=== PATIENT | female | born 1950 | race Caucasian/White ===

== ENCOUNTER 2021-06-25 19:28 | Inpatient (IN) | payer MEDICARE ==
[2021-06-25 20:11] VITALS: BMI 22.7
[2021-06-25] MEDS ORDERED: SODIUM CHLORIDE 1,429 ML IV ONE (20:26)
[2021-06-25] MEDS ORDERED: ALBUTEROL SO4 2.5/IPRATROPIUM 0.5 INH SOL 3 ML VIAL.NEB. NEB ONE ×2 (21:03→21:22)
[2021-06-25 21:18] LABS: CALCIUM 8.7 mg/dL (8.5-10.1)
[2021-06-25 21:19] LABS: ALBUMIN 2.5 g/dl (3.4-5.0)
[2021-06-25] MEDS ORDERED: SODIUM CHLORIDE 0.9% 500 ML INFUS.BAG IV ONE (21:19)
[2021-06-25 21:20] LABS: BASO % 0.2 % (0-2.0); EOS % 1.2 % (0-4.5); HEMATOCRIT 40.8 % (32.4-45.2); HEMOGLOBIN 12.6 GM/dL (10.7-15.3); LYMPH % 8.2 % (8-40); MCH 32.1 pg (25.7-33.7); MCHC 30.9 g/dl (32.0-36.0); MEAN CELL VOLUME 103.8 fl (80-96); MEAN PLT VOLUME 8.4 fl (7.5-11.1); MONO % 3.8 % (3.8-10.2); NEUT % 86.6 % (42.8-82.8); PLATELET COUNT 151 10^3/uL (134-434); RBC 3.93 M/mm3 (3.60-5.2); RDW 22.6 % (11.6-15.6); WHITE BLOOD COUNT 4.5 K/mm3 (4.0-10.0)
[2021-06-25 21:22] LABS: CREATININE 4.4 mg/dL (0.55-1.3)
[2021-06-25] MEDS ORDERED: DEXAMETHASONE SOD PHOSPHATE 10 MG/1 ML VIAL IVPUSH STA (21:22)
[2021-06-25] MEDS ORDERED: DEXAMETHASONE SOD PHOSPHATE 10 MG/1 ML VIAL ONE (21:22)
[2021-06-25 21:23] LABS: INR 3.97 (0.83-1.09); PROTHROMBIN TIME (PATIENT) 46.3 SEC (9.7-13.0)
[2021-06-25] MEDS ORDERED: PIPERACILLIN/TAZOB 4.5 GM 4.5 GM in DEXTROSE 5%-WATER 100 ML IVPB ONE (21:23)
[2021-06-25] MEDS ORDERED: VANCOMYCIN 1,000 MG in DEXTROSE 5%-WATER - 250 ML IVPB ONE (21:23)
[2021-06-25 21:24] LABS: BILIRUBIN,TOTAL 2.3 mg/dL (0.2-1)
[2021-06-25 21:26] LABS: ACTIVATED PTT 40.3 SECONDS (25.2-36.5)
[2021-06-25 21:30] LABS: LACTIC ACID 7.7 mmol/L (0.4-2.0)
[2021-06-25] MEDS ORDERED: PIPERACILLIN/TAZOB 4.5 GM 4.5 GM/100 ML BAG IVPB ONE (21:39)
[2021-06-25 21:45] LABS: ARTERIAL BLD GAS O2 SATURATION 99.4 % (95-98); ARTERIAL BLOOD GAS BASE EXCESS -1.6 mmol/L (-2-2); ARTERIAL BLOOD GAS PO2 204.7 mmHg (80-100); ARTERIAL BLOOD GAS pH 7.383 (7.350-7.450)
[2021-06-25 21:46] LABS: ALLENS TEST POSITIVE
[2021-06-25 21:47] LABS: VENT MODE HF + NRB
[2021-06-25 22:03] LABS: BLOOD UREA NITROGEN 30.6 mg/dL (7-18); TOT PROT 8.1 g/dl (6.4-8.2)
[2021-06-25] MEDS ORDERED: VANCOMYCIN 1 GRAM (PRE-DOCKED) 1,000 MG/250 ML BAG IVPB ONE (23:10)
[2021-06-26 00:24] LABS: ANISOCYTOSIS 2+; MACROCYTOSIS 1+
[2021-06-26 00:25] LABS: TARGET CELLS 1+; TEAR DROP CELLS 1+
[2021-06-26 00:35] LABS: ARTERIAL BLD GAS O2 SATURATION 99.6 % (95-98); ARTERIAL BLOOD GAS PO2 259.3 mmHg (80-100); ARTERIAL BLOOD GAS pH 7.364 (7.350-7.450)
[2021-06-26 06:29] LABS: LACTIC ACID 2.8 mmol/L (0.4-2.0)
[2021-06-26 09:55] LABS: HEMATOCRIT 32.9 % (32.4-45.2); HEMOGLOBIN 10.4 GM/dL (10.7-15.3); MCH 32.4 pg (25.7-33.7); MCHC 31.8 g/dl (32.0-36.0); MEAN PLT VOLUME 8.4 fl (7.5-11.1); PLATELET COUNT 113 10^3/uL (134-434); RBC 3.22 M/mm3 (3.60-5.2); WHITE BLOOD COUNT 8.3 K/mm3 (4.0-10.0)
[2021-06-26 10:00] LABS: INR 3.43 (0.83-1.09); PROTHROMBIN TIME (PATIENT) 39.9 SEC (9.7-13.0)
[2021-06-26 10:02] LABS: ACTIVATED PTT 45.8 SECONDS (25.2-36.5)
[2021-06-26 10:27] LABS: ANISOCYTOSIS 1+; MACROCYTOSIS 1+; OVALOCYTE 1+; PLATELET ESTIMATE DECREASED
[2021-06-26] MEDS ORDERED: PIPERACILLIN/TAZOB 3.375 GM 3.375 GM in DEXTROSE 5%-WATER - 50 ML IVPB ONE (10:37)
[2021-06-26 10:38] LABS: CALCIUM 8.6 mg/dL (8.5-10.1)
[2021-06-26 10:42] LABS: CREATININE 4.5 mg/dL (0.55-1.3)
[2021-06-26] MEDS ORDERED: PIPERACILLIN/TAZOB 3.375 GM 3.375 GM/50 ML BAG IVPB ONE ×2 (10:42→15:11)
[2021-06-26 10:44] LABS: BILIRUBIN,TOTAL 1.8 mg/dL (0.2-1); TOT PROT 6.7 g/dl (6.4-8.2)
[2021-06-26] MEDS ORDERED: ALBUTEROL SO4 2.5/IPRATROPIUM 0.5 INH SOL 3 ML VIAL.NEB. NEB PRN (10:46)
[2021-06-26] MEDS ORDERED: PANTOPRAZOLE SODIUM 40 MG/100 ML BAG IVPB ONE (10:59)
[2021-06-26] MEDS: PANTOPRAZOLE SODIUM 40 MG VIAL IVPUSH SCH (12:00)
[2021-06-26] MEDS ORDERED: PT OWN MED DRAWER 7, Y5N ONE (14:56)
[2021-06-26] MEDS ORDERED: PIPERACILLIN/TAZOB 2.25 GM 2.25 GM in DEXTROSE 5%-WATER - 50 ML IVPB SCH (15:00)
[2021-06-26] MEDS ORDERED: PIPERACILLIN/TAZOB 2.25 GM 3.375 GM in DEXTROSE 5%-WATER - 50 ML IVPB SCH (15:00)
[2021-06-26] MEDS: SODIUM CHLORIDE NASAL SPRAY 44 ML BOTTLE NS SCH ×3 (15:16→23:19)
[2021-06-26] MEDS ORDERED: SODIUM CHLORIDE 250 ML IV PRN (16:44)
[2021-06-26] MEDS ORDERED: VANCOMYCIN 1 GRAM (PRE-DOCKED) 1,000 MG/250 ML BAG IVPB ONE ×2 (18:44→18:54)
[2021-06-26] MEDS: ALBUMIN HUMAN 25% 12.5 GM/50 ML VIAL IVPB SCH ×4 (21:35→22:37)
[2021-06-26 23:47] LABS: INR 3.49 (0.83-1.09); PROTHROMBIN TIME (PATIENT) 40.6 SEC (9.7-13.0)
[2021-06-27] MEDS: PIPERACILLIN/TAZOB 2.25 GM 2.25 GM in DEXTROSE 5%-WATER - 50 ML IVPB SCH ×3 (04:10→18:24)
[2021-06-27] MEDS: FLUTICASONE PROP 0.05% 16 GM NASAL SPRAY NS SCH ×3 (04:24→23:09)
[2021-06-27] MEDS ORDERED: PIPERACILLIN/TAZOB 2.25 GM 2.25 GM/50 ML BAG IVPB ONE ×3 (04:47→17:50)
[2021-06-27] MEDS ORDERED: SODIUM CHLORIDE 0.9% 500 ML INFUS.BAG IV ONE (06:02)
[2021-06-27] MEDS ORDERED: METOPROLOL TARTRATE 5 MG/5 ML VIAL IVPUSH ONE (06:02)
[2021-06-27] MEDS ORDERED: SODIUM CHLORIDE 500 ML IV STA (06:09)
[2021-06-27] MEDS ORDERED: METOPROLOL TARTRATE 5 MG/5 ML VIAL ONE ×3 (06:26→23:49)
[2021-06-27 06:46] LABS: ARTERIAL BLD GAS O2 SATURATION 58.2 % (95-98); ARTERIAL BLOOD GAS BASE EXCESS 2.6 mmol/L (-2-2); ARTERIAL BLOOD GAS pH 7.313 (7.350-7.450)
[2021-06-27 07:02] LABS: ARTERIAL BLOOD GAS PO2 33.8 mmHg (80-100)
[2021-06-27 07:36] LABS: BASO % 0.3 % (0-2.0); HEMATOCRIT 32.3 % (32.4-45.2); HEMOGLOBIN 9.8 GM/dL (10.7-15.3); LYMPH % 6.7 % (8-40); MCH 31.4 pg (25.7-33.7); MCHC 30.4 g/dl (32.0-36.0); MEAN CELL VOLUME 103.2 fl (80-96); MEAN PLT VOLUME 8.7 fl (7.5-11.1); PLATELET COUNT 103 10^3/uL (134-434); RBC 3.13 M/mm3 (3.60-5.2); WHITE BLOOD COUNT 7.5 K/mm3 (4.0-10.0)
[2021-06-27 07:52] LABS: CALCIUM 8.9 mg/dL (8.5-10.1)
[2021-06-27 07:53] LABS: BLOOD UREA NITROGEN 37.4 mg/dL (7-18); MAGNESIUM 2.3 mg/dL (1.8-2.4)
[2021-06-27 07:56] LABS: CREATININE 4.3 mg/dL (0.55-1.3)
[2021-06-27 07:58] LABS: BILIRUBIN,TOTAL 1.8 mg/dL (0.2-1); TOT PROT 6.5 g/dl (6.4-8.2)
[2021-06-27 07:59] LABS: ALBUMIN 2.7 g/dl (3.4-5.0)
[2021-06-27] MEDS ORDERED: PHYTONADIONE 10 MG/1 ML AMP ONE (09:46)
[2021-06-27] MEDS ORDERED: PANTOPRAZOLE SODIUM 40 MG/100 ML BAG IVPB ONE (09:47)
[2021-06-27] MEDS: PANTOPRAZOLE SODIUM 40 MG VIAL IVPUSH SCH (09:54)
[2021-06-27] MEDS: SODIUM CHLORIDE NASAL SPRAY 44 ML BOTTLE NS SCH ×4 (09:54→23:09)
[2021-06-27] MEDS ORDERED: methaDONE HCL 40 MG DISPERSABLE TABLET PO SCH (11:30)
[2021-06-27] MEDS ORDERED: METOPROLOL TARTRATE 25 MG TABLET (FP) ONE (11:45)
[2021-06-27] MEDS: PHYTONADIONE 10 MG/1 ML AMP SQ ONE ×2 (12:57→16:48)
[2021-06-27] MEDS ORDERED: METOPROLOL TARTRATE 5 MG/5 ML VIAL IVPUSH PRN (13:11)
[2021-06-27] MEDS ORDERED: PHYTONADIONE 10 MG/1 ML AMP IVPB ONE (16:19)
[2021-06-27] MEDS: METOPROLOL TARTRATE 25 MG TABLET (FP) PO SCH ×2 (16:46→23:48)
[2021-06-27] MEDS: AMINO ACIDS 4.25%/D5W 1,000 ML IV SCH (18:04)
[2021-06-27] MEDS: METOPROLOL TARTRATE 5 MG/5 ML VIAL IVPUSH PRN (23:59)
[2021-06-28] MEDS ORDERED: PIPERACILLIN/TAZOBACTAM 2.25 GM VIAL IVPB ONE ×3 (02:48→17:13)
[2021-06-28] MEDS ORDERED: DEXTROSE 5%-WATER - 50 ML IVPB ONE ×3 (02:48→17:13)
[2021-06-28] MEDS: PIPERACILLIN/TAZOB 2.25 GM 2.25 GM in DEXTROSE 5%-WATER - 50 ML IVPB SCH ×3 (02:54→17:21)
[2021-06-28] MEDS: METOPROLOL TARTRATE 5 MG/5 ML VIAL IVPUSH PRN ×3 (04:13→22:25)
[2021-06-28] MEDS ORDERED: SODIUM CHLORIDE 0.9% 500 ML INFUS.BAG IV ONE (06:42)
[2021-06-28] MEDS ORDERED: METOPROLOL TARTRATE 5 MG/5 ML VIAL IVPUSH ONE (06:43)
[2021-06-28] MEDS: METOPROLOL TARTRATE 25 MG TABLET (FP) PO SCH ×2 (10:24→22:25)
[2021-06-28] MEDS: FLUTICASONE PROP 0.05% 16 GM NASAL SPRAY NS SCH ×2 (10:24→22:31)
[2021-06-28] MEDS: SODIUM CHLORIDE NASAL SPRAY 44 ML BOTTLE NS SCH ×3 (10:24→22:31)
[2021-06-28] MEDS: PANTOPRAZOLE SODIUM 40 MG VIAL IVPUSH SCH (10:24)
[2021-06-28 13:18] LABS: BASO % 0.1 % (0-2.0); HEMATOCRIT 31.3 % (32.4-45.2); HEMOGLOBIN 9.7 GM/dL (10.7-15.3); LYMPH % 6.9 % (8-40); MCH 31.6 pg (25.7-33.7); MCHC 30.9 g/dl (32.0-36.0); MEAN CELL VOLUME 102.4 fl (80-96); MEAN PLT VOLUME 8.6 fl (7.5-11.1); MONO % 3.1 % (3.8-10.2); NEUT % 89.9 % (42.8-82.8); PLATELET COUNT 82 10^3/uL (134-434); RBC 3.06 M/mm3 (3.60-5.2); RDW 21.7 % (11.6-15.6); WHITE BLOOD COUNT 10.6 K/mm3 (4.0-10.0)
[2021-06-28 13:21] LABS: INR 2.23 (0.83-1.09); PROTHROMBIN TIME (PATIENT) 25.8 SEC (9.7-13.0)
[2021-06-28 13:24] LABS: ACTIVATED PTT 39.3 SECONDS (25.2-36.5)
[2021-06-28 13:47] LABS: CALCIUM 8.8 mg/dL (8.5-10.1)
[2021-06-28 13:48] LABS: ALBUMIN 2.3 g/dl (3.4-5.0); BLOOD UREA NITROGEN 53.5 mg/dL (7-18)
[2021-06-28] MEDS: ALBUMIN HUMAN 25% 12.5 GM/50 ML VIAL IVPB SCH ×3 (13:50→16:20)
[2021-06-28 13:51] LABS: CREATININE 5.1 mg/dL (0.55-1.3)
[2021-06-28 13:52] LABS: BILIRUBIN,TOTAL 2.4 mg/dL (0.2-1); TOT PROT 6.4 g/dl (6.4-8.2)
[2021-06-28] MEDS ORDERED: EPOETIN ALFA-EPBX 4,000 UNIT/ML VIAL SQ ONE (14:00)
[2021-06-28] MEDS ORDERED: SODIUM CHLORIDE 250 ML IV PRN (14:00)
[2021-06-28] MEDS: AMINO ACIDS 4.25%/D5W 1,000 ML IV SCH (17:23)
[2021-06-29] MEDS ORDERED: PIPERACILLIN/TAZOBACTAM 2.25 GM VIAL IVPB ONE ×3 (01:16→17:59)
[2021-06-29] MEDS ORDERED: DEXTROSE 5%-WATER - 50 ML IVPB ONE ×3 (01:16→17:59)
[2021-06-29] MEDS: PIPERACILLIN/TAZOB 2.25 GM 2.25 GM in DEXTROSE 5%-WATER - 50 ML IVPB SCH ×3 (02:58→18:01)
[2021-06-29] MEDS: METOPROLOL TARTRATE 5 MG/5 ML VIAL IVPUSH PRN (05:35)
[2021-06-29] MEDS ORDERED: methaDONE HCL 10 MG TABLET PO SCH (06:00)
[2021-06-29 07:16] LABS: INR 2.3 (0.83-1.09); PROTHROMBIN TIME (PATIENT) 26.7 SEC (9.7-13.0)
[2021-06-29] MEDS: METOPROLOL TARTRATE 25 MG TABLET (FP) PO SCH ×2 (09:32→21:48)
[2021-06-29] MEDS: SODIUM CHLORIDE NASAL SPRAY 44 ML BOTTLE NS SCH ×4 (09:33→21:48)
[2021-06-29] MEDS: FLUTICASONE PROP 0.05% 16 GM NASAL SPRAY NS SCH ×2 (09:33→21:48)
[2021-06-29] MEDS: PANTOPRAZOLE SODIUM 40 MG VIAL IVPUSH SCH (09:34)
[2021-06-29] MEDS ORDERED: dilTIAZem HCL 30 MG TABLET PO ONE (10:11)
[2021-06-29] MEDS ORDERED: SODIUM CHLORIDE 250 ML IV PRN (16:08)
[2021-06-29] MEDS ORDERED: EPOETIN ALFA-EPBX 4,000 UNIT/ML VIAL IVPUSH ONE (16:08)
[2021-06-29] MEDS: AMINO ACIDS 4.25%/D5W 1,000 ML IV SCH (18:02)
[2021-06-29] MEDS: MULTIVIT INJ. ADULT COMBO WITH VIT K 1 COMBO 10 ML VIAL IV SCH (18:02)
[2021-06-29] MEDS: LACTULOSE 20 GM/30 ML UDC (FOR ORAL USE ONLY) PO SCH (21:48)
[2021-06-30] MEDS ORDERED: PIPERACILLIN/TAZOBACTAM 2.25 GM VIAL IVPB ONE ×3 (02:32→17:47)
[2021-06-30] MEDS ORDERED: DEXTROSE 5%-WATER - 50 ML IVPB ONE ×3 (02:32→17:47)
[2021-06-30] MEDS: PIPERACILLIN/TAZOB 2.25 GM 2.25 GM in DEXTROSE 5%-WATER - 50 ML IVPB SCH ×3 (02:47→17:50)
[2021-06-30] MEDS: SODIUM CHLORIDE NASAL SPRAY 44 ML BOTTLE NS SCH ×4 (10:00→22:01)
[2021-06-30] MEDS: FLUTICASONE PROP 0.05% 16 GM NASAL SPRAY NS SCH ×2 (10:00→22:01)
[2021-06-30] MEDS: LACTULOSE 20 GM/30 ML UDC (FOR ORAL USE ONLY) PO SCH ×2 (11:20→22:01)
[2021-06-30] MEDS: METOPROLOL TARTRATE 25 MG TABLET (FP) PO SCH ×2 (11:20→22:01)
[2021-06-30] MEDS: PANTOPRAZOLE SODIUM 40 MG VIAL IVPUSH SCH (11:21)
[2021-06-30] MEDS ORDERED: EPOETIN ALFA-EPBX 4,000 UNIT/ML VIAL IVPUSH ONE (12:00)
[2021-06-30] MEDS ORDERED: DIGOXIN 0.5 MG/2 ML AMPUL IVPUSH ONE ×2 (13:00→18:00)
[2021-06-30] MEDS: AMINO ACIDS 4.25%/D5W 1,000 ML IV SCH (18:16)
[2021-06-30] MEDS: MULTIVIT INJ. ADULT COMBO WITH VIT K 1 COMBO 10 ML VIAL IV SCH (18:19)
[2021-07-01] MEDS ORDERED: PIPERACILLIN/TAZOBACTAM 2.25 GM VIAL IVPB ONE ×3 (02:12→17:11)
[2021-07-01] MEDS ORDERED: DEXTROSE 5%-WATER - 50 ML IVPB ONE ×3 (02:12→17:12)
[2021-07-01] MEDS: PIPERACILLIN/TAZOB 2.25 GM 2.25 GM in DEXTROSE 5%-WATER - 50 ML IVPB SCH ×3 (02:57→17:20)
[2021-07-01] MEDS: LACTULOSE 20 GM/30 ML UDC (FOR ORAL USE ONLY) PO SCH ×2 (09:57→21:16)
[2021-07-01] MEDS: METOPROLOL TARTRATE 25 MG TABLET (FP) PO SCH ×3 (09:57→21:16)
[2021-07-01] MEDS: PANTOPRAZOLE SODIUM 40 MG VIAL IVPUSH SCH (09:58)
[2021-07-01] MEDS: SODIUM CHLORIDE NASAL SPRAY 44 ML BOTTLE NS SCH ×4 (10:05→21:26)
[2021-07-01] MEDS: FLUTICASONE PROP 0.05% 16 GM NASAL SPRAY NS SCH ×2 (10:06→21:26)
[2021-07-01] MEDS: DIGOXIN 0.125 MG TABLET PO SCH (14:11)
[2021-07-01] MEDS: AMINO ACIDS 4.25%/D5W 1,000 ML IV SCH (17:19)
[2021-07-01] MEDS: MULTIVIT INJ. ADULT COMBO WITH VIT K 1 COMBO 10 ML VIAL IV SCH (17:20)
[2021-07-02] MEDS ORDERED: PIPERACILLIN/TAZOBACTAM 2.25 GM VIAL IVPB ONE ×3 (01:17→16:45)
[2021-07-02] MEDS ORDERED: DEXTROSE 5%-WATER - 50 ML IVPB ONE ×3 (01:17→16:46)
[2021-07-02] MEDS: PIPERACILLIN/TAZOB 2.25 GM 2.25 GM in DEXTROSE 5%-WATER - 50 ML IVPB SCH ×3 (01:55→18:23)
[2021-07-02] MEDS: METOPROLOL TARTRATE 25 MG TABLET (FP) PO SCH ×3 (05:40→21:10)
[2021-07-02] MEDS: SODIUM CHLORIDE NASAL SPRAY 44 ML BOTTLE NS SCH ×4 (09:25→21:10)
[2021-07-02] MEDS: LACTULOSE 20 GM/30 ML UDC (FOR ORAL USE ONLY) PO SCH ×2 (09:26→21:15)
[2021-07-02] MEDS: PANTOPRAZOLE SODIUM 40 MG VIAL IVPUSH SCH (09:27)
[2021-07-02] MEDS: FLUTICASONE PROP 0.05% 16 GM NASAL SPRAY NS SCH ×2 (09:28→21:10)
[2021-07-02] MEDS: AMINO ACIDS 4.25%/D5W 1,000 ML IV SCH (18:21)
[2021-07-02] MEDS: MULTIVIT INJ. ADULT COMBO WITH VIT K 1 COMBO 10 ML VIAL IV SCH (18:22)
[2021-07-03] MEDS ORDERED: PIPERACILLIN/TAZOBACTAM 2.25 GM VIAL IVPB ONE ×3 (01:26→17:23)
[2021-07-03] MEDS ORDERED: DEXTROSE 5%-WATER - 50 ML IVPB ONE ×3 (01:27→17:23)
[2021-07-03] MEDS: PIPERACILLIN/TAZOB 2.25 GM 2.25 GM in DEXTROSE 5%-WATER - 50 ML IVPB SCH ×3 (01:46→17:22)
[2021-07-03] MEDS: METOPROLOL TARTRATE 25 MG TABLET (FP) PO SCH ×3 (05:25→21:47)
[2021-07-03] MEDS: ALBUMIN HUMAN 25% 12.5 GM/50 ML VIAL IVPB SCH ×4 (08:10→11:22)
[2021-07-03] MEDS ORDERED: EPOETIN ALFA-EPBX 4,000 UNIT/ML VIAL SQ ONE (08:30)
[2021-07-03] MEDS ORDERED: SODIUM CHLORIDE 250 ML IV PRN (08:30)
[2021-07-03 09:06] LABS: HEMATOCRIT 34.6 % (32.4-45.2); HEMOGLOBIN 10.6 GM/dL (10.7-15.3); MCH 32.4 pg (25.7-33.7); MCHC 30.6 g/dl (32.0-36.0); MEAN PLT VOLUME 10.1 fl (7.5-11.1); PLATELET COUNT 77 10^3/uL (134-434); RBC 3.27 M/mm3 (3.60-5.2); RDW 23.4 % (11.6-15.6)
[2021-07-03 09:33] LABS: CHLORIDE 114 mmol/L (98-107); SODIUM 152 mmol/L (136-145)
[2021-07-03 09:37] LABS: BLOOD UREA NITROGEN 44.8 mg/dL (7-18); CALCIUM 8.5 mg/dL (8.5-10.1); CO2 28 mmol/L (21-32); GLUCOSE,RANDOM 264 mg/dL (74-106)
[2021-07-03 09:40] LABS: SGOT/AST 78 U/L (15-37); SGPT/ALT 79 U/L (13-61)
[2021-07-03 09:41] LABS: BILIRUBIN,TOTAL 3.9 mg/dL (0.2-1); CREATININE 2.8 mg/dL (0.55-1.3); TOT PROT 6.6 g/dl (6.4-8.2)
[2021-07-03 09:43] LABS: ALK PHOS 119 U/L (45-117)
[2021-07-03 09:47] LABS: ANION GAP 9 MMOL/L (8-16)
[2021-07-03] MEDS: LACTULOSE 20 GM/30 ML UDC (FOR ORAL USE ONLY) PO SCH ×2 (11:42→21:47)
[2021-07-03] MEDS: DIGOXIN 0.125 MG TABLET PO SCH (11:43)
[2021-07-03] MEDS: FLUTICASONE PROP 0.05% 16 GM NASAL SPRAY NS SCH ×2 (11:43→21:47)
[2021-07-03] MEDS: SODIUM CHLORIDE NASAL SPRAY 44 ML BOTTLE NS SCH ×4 (11:44→22:02)
[2021-07-03] MEDS: PANTOPRAZOLE SODIUM 40 MG VIAL IVPUSH SCH (11:44)
[2021-07-03 11:56] LABS: ANISOCYTOSIS 1+; MACROCYTOSIS 1+; PLATELET ESTIMATE DECREASED; TARGET CELLS 1+
[2021-07-03 12:05] LABS: WHITE BLOOD COUNT 9.3 K/mm3 (4.0-10.0)
[2021-07-03 12:06] LABS: CORRECTED WBC 6.99 K/mm3
[2021-07-03] MEDS ORDERED: DIPHENOXYLATE 2.5/ATROPINE.025 1 COMBO TABLET PO PRN (13:10)
[2021-07-03 14:58] LABS: INR 1.7 (0.83-1.09); PROTHROMBIN TIME (PATIENT) 19.7 SEC (9.7-13.0)
[2021-07-03 15:23] LABS: BLOOD UREA NITROGEN 41.5 mg/dL (7-18)
[2021-07-03 15:26] LABS: CREATININE 2.9 mg/dL (0.55-1.3)
[2021-07-03 15:29] LABS: BILIRUBIN,TOTAL 5.1 mg/dL (0.2-1); TOT PROT 6.7 g/dl (6.4-8.2)
[2021-07-03 15:45] LABS: ALBUMIN 2.4 g/dl (3.4-5.0)
[2021-07-03] MEDS: AMINO ACIDS 4.25%/D5W 1,000 ML IV SCH (17:21)
[2021-07-03] MEDS: MULTIVIT INJ. ADULT COMBO WITH VIT K 1 COMBO 10 ML VIAL IV SCH (17:22)
[2021-07-04] MEDS ORDERED: PIPERACILLIN/TAZOBACTAM 2.25 GM VIAL IVPB ONE ×3 (02:01→16:45)
[2021-07-04] MEDS ORDERED: DEXTROSE 5%-WATER - 50 ML IVPB ONE ×3 (02:01→16:46)
[2021-07-04] MEDS: PIPERACILLIN/TAZOB 2.25 GM 2.25 GM in DEXTROSE 5%-WATER - 50 ML IVPB SCH ×3 (03:24→17:32)
[2021-07-04] MEDS: METOPROLOL TARTRATE 25 MG TABLET (FP) PO SCH ×3 (05:41→22:04)
[2021-07-04 09:09] LABS: IRON SERUM 139 ug/dL (50-175); TOTAL IRON BINDING CAPACITY 141 ug/dL (250-450)
[2021-07-04] MEDS: LACTULOSE 20 GM/30 ML UDC (FOR ORAL USE ONLY) PO SCH ×2 (09:14→22:04)
[2021-07-04] MEDS: PANTOPRAZOLE SODIUM 40 MG VIAL IVPUSH SCH (09:14)
[2021-07-04] MEDS: SODIUM CHLORIDE NASAL SPRAY 44 ML BOTTLE NS SCH ×4 (09:16→22:06)
[2021-07-04] MEDS: FLUTICASONE PROP 0.05% 16 GM NASAL SPRAY NS SCH ×2 (10:48→22:05)
[2021-07-04 14:33] LABS: BASO % 0.5 % (0-2.0); HEMATOCRIT 37.1 % (32.4-45.2); HEMOGLOBIN 11.1 GM/dL (10.7-15.3); LYMPH % 6.2 % (8-40); MCH 32.9 pg (25.7-33.7); MCHC 29.9 g/dl (32.0-36.0); MEAN CELL VOLUME 110.2 fl (80-96); MEAN PLT VOLUME 10.2 fl (7.5-11.1); MONO % 2.4 % (3.8-10.2); NEUT % 90.9 % (42.8-82.8); PLATELET COUNT 67 10^3/uL (134-434); RBC 3.36 M/mm3 (3.60-5.2); WHITE BLOOD COUNT 8.1 K/mm3 (4.0-10.0)
[2021-07-04 14:43] LABS: INR 1.68 (0.83-1.09); PROTHROMBIN TIME (PATIENT) 19.4 SEC (9.7-13.0)
[2021-07-04 14:53] LABS: ALBUMIN 2.2 g/dl (3.4-5.0); CALCIUM 8.7 mg/dL (8.5-10.1)
[2021-07-04 14:56] LABS: BILIRUBIN,DIRECT 3.7 mg/dL (0.0-0.2)
[2021-07-04 14:57] LABS: CREATININE 4.1 mg/dL (0.55-1.3)
[2021-07-04 14:58] LABS: TOT PROT 6.9 g/dl (6.4-8.2)
[2021-07-04 14:59] LABS: BILIRUBIN,TOTAL 4.6 mg/dL (0.2-1); BLOOD UREA NITROGEN 69.3 mg/dL (7-18)
[2021-07-04] MEDS: AMINO ACIDS 4.25%/D5W 1,000 ML IV SCH (18:27)
[2021-07-04] MEDS: MULTIVIT INJ. ADULT COMBO WITH VIT K 1 COMBO 10 ML VIAL IV SCH (18:27)
[2021-07-05] MEDS ORDERED: DEXTROSE 5%-WATER - 50 ML IVPB ONE ×3 (01:41→17:38)
[2021-07-05] MEDS ORDERED: PIPERACILLIN/TAZOBACTAM 2.25 GM VIAL IVPB ONE ×3 (01:41→17:38)
[2021-07-05] MEDS: PIPERACILLIN/TAZOB 2.25 GM 2.25 GM in DEXTROSE 5%-WATER - 50 ML IVPB SCH ×3 (02:17→17:39)
[2021-07-05] MEDS: METOPROLOL TARTRATE 25 MG TABLET (FP) PO SCH ×3 (06:00→22:13)
[2021-07-05 07:37] LABS: HEMATOCRIT 37.6 % (32.4-45.2); HEMOGLOBIN 11.5 GM/dL (10.7-15.3); MCH 33.5 pg (25.7-33.7); MCHC 30.5 g/dl (32.0-36.0); MEAN CELL VOLUME 109.6 fl (80-96); PLATELET COUNT 61 10^3/uL (134-434); RBC 3.43 M/mm3 (3.60-5.2); RDW 24.6 % (11.6-15.6); WHITE BLOOD COUNT 8.5 K/mm3 (4.0-10.0)
[2021-07-05 07:49] LABS: BLOOD UREA NITROGEN 82.3 mg/dL (7-18); CALCIUM 8.8 mg/dL (8.5-10.1)
[2021-07-05 07:52] LABS: BILIRUBIN,DIRECT 3.9 mg/dL (0.0-0.2); CREATININE 4.6 mg/dL (0.55-1.3)
[2021-07-05 07:54] LABS: BILIRUBIN,TOTAL 4.7 mg/dL (0.2-1); TOT PROT 6.4 g/dl (6.4-8.2)
[2021-07-05 08:22] LABS: INR 1.46 (0.83-1.09); PROTHROMBIN TIME (PATIENT) 16.8 SEC (9.7-13.0)
[2021-07-05 09:05] LABS: ANISOCYTOSIS 3+; CORRECTED WBC 7.66 K/mm3; MACROCYTOSIS 3+; PLATELET ESTIMATE DECREASED
[2021-07-05] MEDS: LACTULOSE 20 GM/30 ML UDC (FOR ORAL USE ONLY) PO SCH ×2 (10:39→22:12)
[2021-07-05] MEDS: DIGOXIN 0.125 MG TABLET PO SCH (10:40)
[2021-07-05] MEDS: AMINO ACIDS/PROTEIN HYDROLYS 30 ML LIQUID.PKT PO SCH ×2 (10:40→17:36)
[2021-07-05] MEDS: FLUTICASONE PROP 0.05% 16 GM NASAL SPRAY NS SCH ×2 (10:40→21:50)
[2021-07-05] MEDS: SODIUM CHLORIDE NASAL SPRAY 44 ML BOTTLE NS SCH ×4 (10:40→21:50)
[2021-07-05] MEDS: PANTOPRAZOLE SODIUM 40 MG VIAL IVPUSH SCH (10:40)
[2021-07-05] MEDS ORDERED: EPOETIN ALFA-EPBX 4,000 UNIT/ML VIAL SQ ONE (12:00)
[2021-07-05] MEDS ORDERED: SODIUM CHLORIDE 250 ML IV PRN (12:00)
[2021-07-05 16:23] VITALS: PULSE 108
[2021-07-05] MEDS ORDERED: INSULIN (NOVOLOG) ASPART 100 UNITS/ML 10ML VIAL SQ SCH (16:30)
[2021-07-05] MEDS: AMINO ACIDS 4.25%/D5W 1,000 ML IV SCH (17:39)
[2021-07-05] MEDS: MULTIVIT INJ. ADULT COMBO WITH VIT K 1 COMBO 10 ML VIAL IV SCH (17:39)
[2021-07-05] MEDS ORDERED: FAMOTIDINE 20 MG/50 ML IVPB 20 MG/50 ML MG IVPB SCH (22:00)
[2021-07-05 22:15] VITALS: BP 92/63; TEMP 98.9
== END 2021-07-05 23:00 | disposition short-term general hospital (02) | DRG 871 ==
LOC: JER 19:28 → JERBED 06-26 04:23 → J4W 06-28 01:48
PROVIDERS: ADMIT Hospitalist; ATTEND Internal Medicine
PROC: 5A1D70Z Performance of Urinary Filtration, Intermittent, Less than 6 Hours Per Day (ICD-10-PCS; principal; 2021-06-30)
PROC: 5A1D70Z Performance of Urinary Filtration, Intermittent, Less than 6 Hours Per Day (ICD-10-PCS; 2021-07-03)
PROC: 5A1D70Z Performance of Urinary Filtration, Intermittent, Less than 6 Hours Per Day (ICD-10-PCS; 2021-07-05)
DX: A41.89 Other specified sepsis (principal); J18.9 Pneumonia, unspecified organism; J96.01 Acute respiratory failure with hypoxia; G93.41 Metabolic encephalopathy; N18.6 End stage renal disease; F11.20 Opioid dependence, uncomplicated; I48.20 Chronic atrial fibrillation, unspecified; E87.2 Acidosis; E87.0 Hyperosmolality and hypernatremia; I13.2 Hypertensive heart and chronic kidney disease with heart failure and with stage 5 chronic kidney disease, or end stage renal disease; R18.8 Other ascites; L03.90 Cellulitis, unspecified; F31.9 Bipolar disorder, unspecified; K72.90 Hepatic failure, unspecified without coma; I48.91 Unspecified atrial fibrillation; E87.70 Fluid overload, unspecified; S80.12XA Contusion of left lower leg, initial encounter; K21.9 Gastro-esophageal reflux disease without esophagitis; E78.5 Hyperlipidemia, unspecified; L89.619 Pressure ulcer of right heel, unspecified stage; D69.6 Thrombocytopenia, unspecified; R16.0 Hepatomegaly, not elsewhere classified; I07.1 Rheumatic tricuspid insufficiency; I50.810 Right heart failure, unspecified
CPT/HCPCS: 36415; 36600; 71045-TC-FY; 76700-TC; 80048; 80053; 80076; 82140; 82728; 82803; 82962; 83540; 83550; 83605; 83615; 83735; 83880; 84484; 85025; 85379; 85384; 85610; 85730; 86038; 86140; 86803; 87040; 87324; 87340; 87449; 93005; 93010; 93306-TC; 99285-25; C9803; G0480; J1100; P9047; Q5106; U0003; U0005